=== PATIENT | female | born 1955 | race Caucasian/White ===

== ENCOUNTER 2017-12-21 08:05 | Outpatient (REF) | payer BC, SELFPAY ==
[2017-12-21 21:22] LABS: Cholesterol 206 mg/dL (50-200); HDL Cholesterol 43 mg/dL (40-60); LDL CHOLESTEROL 153 mg/dL (<100); Triglyceride 83 mg/dL (30-150)
== END 2017-12-21 08:25 ==
LOC: NCHCN 08:05
PROVIDERS: PCP Family Medicine; Visit Provider Family Medicine
DX: E78.5 Hyperlipidemia, unspecified (principal)
CPT/HCPCS: 80061; 83721

== ENCOUNTER 2018-07-11 10:47 | Outpatient (REF) | payer BC, SELFPAY ==
[2018-07-11 20:34] LABS: Cholesterol 239 mg/dL (50-200); Glucose 97 mg/dL (70-100); HDL Cholesterol 43 mg/dL (40-60); LDL CHOLESTEROL 173 mg/dL (<100); Triglyceride 126 mg/dL (30-150)
== END 2018-07-11 11:07 ==
LOC: NCHCN 10:47
PROVIDERS: PCP Family Medicine; Visit Provider Family Medicine
DX: Z00.00 Encounter for general adult medical examination without abnormal findings (principal); Z13.1 Encounter for screening for diabetes mellitus; Z13.220 Encounter for screening for lipoid disorders
CPT/HCPCS: 80061; 82947; 83721